=== PATIENT | male | born 2000 | race Caucasian/White ===

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

== ENCOUNTER 2024-03-12 19:54 | Emergency (ER) | payer OTHER ==
[2024-03-12 20:52] VITALS: BP 163/98; PULSE 66; RESP 20; TEMP 97.9
--- NOTE | 2024-03-12 21:10 | ED ---
Nausea/Vomiting/Diarrhea HPI - General Source: patient, RN notes reviewed <Haritha Leo - Last Filed: 03/12/24 21:08> <Taz Munoz - Last Filed: 03/13/24 16:56> - General Chief complaint: Nausea/Vomiting/Diarrhea Stated complaint: Vomiting Time Seen by Provider: 03/12/24 21:00 - History of Present Illness Initial comments: Quick [id number] male presenting with vomiting x 1 day. States he has been having vomiting, nasal congestion, and bodyaches for the past day. 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 He denies abdominal pain or any other concerns (Haritha Leo) 23-year-old male presenting with chief complaint of nausea and vomiting. Symptoms ongoing for the last day. He states that starting around this afternoon his symptoms seem to have started improving. He also admits to nasal congestion and bodyaches. A physician liaison and his employer is requiring him to have a COVID and flu test prior to returning to work. He denies any abdominal pain, chest pain, difficulty breathing, fevers, difficulty swallowing, ear pain. (Taz Munoz) - Related Data Previous Rx's Medication Instructions Recorded Amoxicillin/Potassium Clav 1 each PO Q12HR #20 tab 06/28/19 [Augmentin 875-125 Tablet] Ondansetron Odt [Zofran Odt] 4 mg PO Q8HR PRN #20 tab 03/12/24 Allergies Allergy/AdvReac Type Severity Reaction Status Date / Time No Known Allergies Allergy Verified 03/12/24 20:27 Review of Systems ROS Other: All systems not noted in ROS Statement are negative. <Haritha Leo - Last Filed: 03/12/24 21:08> ROS Other: All systems not noted in ROS Statement are negative. <Taz Munoz - Last Filed: 03/13/24 16:56> ROS Statement: Those systems with pertinent positive or pertinent negative responses have been documented in the HPI. Past Medical History Past Medical History: GERD/Reflux History of Any Multi-Drug Resistant Organisms: None Reported Past Surgical History: No Surgical Hx Reported Past Psychological History: Anxiety, Depression Smoking Status: Never smoker Past Alcohol Use History: None Reported Past Drug Use History: Marijuana <Haritha Leo - Last Filed: 03/12/24 21:08> General Exam <Haritha Leo - Last Filed: 03/12/24 21:08> Limitations: no limitations General appearance: alert, in no apparent distress Head exam: Present: atraumatic, normocephalic Eye exam: Present: normal appearance, EOMI Neck exam: Present: normal inspection. Absent: meningismus Respiratory exam: Present: normal lung sounds bilaterally. Absent: respiratory distress, wheezes, rales, rhonchi, stridor Cardiovascular Exam: Present: regular rate, normal rhythm, normal heart sounds. Absent: systolic murmur, diastolic murmur, rubs, gallop, clicks Neurological exam: Present: alert, oriented X3 Psychiatric exam: Present: normal affect, normal mood Skin exam: Present: warm, dry <Taz Munoz - Last Filed: 03/13/24 16:56> - General Exam Comments Initial Comments: Visual Physical Exam Vital signs reviewed General: Well-appearing, nontoxic, no acute distress. Head: Normocephalic, atraumatic Eyes: PERRLA, EOMI ENT: Airway patent Chest: Nonlabored breathing Skin: No visual rash, normal skin tone Neuro: Alert and oriented 3 Musculoskeletal: No gross abnormalities (Haritha Leo) Course Vital Signs 03/12/24 20:23 Temperature 97.9 F Pulse Rate 66 Respiratory 20 Rate Blood Pressure 163/98 O2 Sat by Pulse 100 Oximetry Medical Decision Making <Haritha Leo - Last Filed: 03/12/24 21:08> <Taz Munoz - Last Filed: 03/13/24 16:56> - Medical Decision Making I completed the quick note portion of this chart signed Haritha Leo PA-C (Haritha Leo) Was pt. sent in by a medical professional or institution (Dr. PA, FOOT DOCTOR, urgent care, hospital, or [facility]...) When possible be specific @ -No Did you speak to anyone other than the patient for history (EMS, parent, family, police, friend...)? What history was obtained from this source @ -No Did you review nursing and triage notes (agree or disagree)? Why? @ -I reviewed and agree with nursing and triage notes Were old charts reviewed (outside hosp., previous admission, EMS record, old EKG, old radiological studies, urgent care reports/EKG's, [facility] records)? Report findings @ -No old charts were reviewed Differential Diagnosis (chest pain, altered mental status, abdominal pain women, abdominal pain men, vaginal bleeding, weakness, fever, dyspnea, syncope, headache, dizziness, GI bleed, back pain, seizure, CVA, palpatations, mental health, musculoskeletal)? @ -Differential includes influenza, RSV, COVID, other viral syndrome, appendicitis, cholecystitis, pancreatitis, this is not an all-inclusive list EKG interpreted by me (3pts min.). @ -As above X-rays interpreted by me (1pt min.). @ -None done CT interpreted by me (1pt min.). @ -None done U/S interpreted by me (1pt. min.). @ -None done What testing was considered but not performed or refused? (CT, X-rays, U/S, labs)? Why? @ -None What meds were considered but not given or refused? Why? @ -None Did you discuss the management of the patient with other professionals (professionals i.e. , PA, FOOT DOCTOR, lab, RT, psych nurse, high school social science teacher, traveling passenger agent, teacher, seal delivery vehicle officer, immigration case manager)? Give summary @ -No Was smoking cessation discussed for >3mins.? @ -No Was critical care preformed (if so, how long)? @ -No Were there social determinants of health that impacted care today? How? (Homelessness, low income, unemployed, alcoholism, drug addiction, transportation, low edu. Level, literacy, decrease access to med. care, [facility], rehab)? @ -No Was there de-escalation of care discussed even if they declined (Discuss DNR or withdrawal of care, Hospice)? DNR status @ -No What co-morbidities impacted this encounter? (DM, HTN, Smoking, COPD, CAD, Cancer, CVA, ARF, Chemo, Hep., AIDS, mental health diagnosis, sleep apnea, morbid obesity)? @ -None Was patient admitted / discharged? Hospital course, mention meds given and route, prescriptions, significant lab abnormalities, going to OR and other pertinent info. @ -23-year-old male with chief complaint of nausea vomiting congestion and bodyaches. Is ongoing for about a day, symptoms have started improving today. His employer is requiring him to be tested for COVID and flu. Patient is negative for influenza, RSV, COVID. Provided with work note and discharged sarika e. Follow-up with PCP. Report back to ER with any new or worsening symptoms. Discussed return parameters and answered all questions. Patient conveyed verbal understanding and agreed to the plan. I discussed this case in detail with my attending Dr. De Leon Undiagnosed new problem with uncertain prognosis? @ -No Drug Therapy requiring intensive monitoring for toxicity (Heparin, Nitro, Insulin, Cardizem)? @ -No Were any procedures done? @ -No Diagnosis/symptom? @ -Nausea and vomiting, viral syndrome Acute, or Chronic, or Acute on Chronic? @ -Acute Uncomplicated (without systemic symptoms) or Complicated (systemic symptoms)? @ -Uncomplicated Side effects of treatment? @ -No Exacerbation, Progression, or Severe Exacerbation? @ -No Poses a threat to life or bodily function? How? (Chest pain, [place], [place], pneumonia, PE, COPD, DKA, ARF, appy, cholecystitis, CVA, Diverticulitis, Homicidal, Suicidal, threat to staff... and all critical care pts) @ -Low likelihood (Taz Munoz) - Lab Data Lab Results 03/12/24 Range/Units 20:30 Influenza Type A (PCR) Not Detected (Not Detectd) Influenza Type B (PCR) Not Detected (Not Detectd) RSV (PCR) Not Detected (Not Detectd) SARS-CoV-2 (PCR) Not Detected (Not Detectd) Disposition <Haritha Leo - Last Filed: 03/12/24 21:08> Is patient prescribed a controlled substance at d/c from ED?: No Time of Disposition: 22:28 <Taz Munoz - Last Filed: 03/13/24 16:56> Clinical Impression: Nausea & vomiting, Viral syndrome Disposition: HOME SELF-CARE Condition: Good Instructions (If sedation given, give patient instructions): Acute Nausea and Vomiting (ED), Viral Syndrome (ED) Additional Instructions: Follow-up with your PCP. Report back to ER with any new or worsening symptoms. Prescriptions: Ondansetron Odt [Zofran Odt] 4 mg PO Q8HR PRN #20 tab PRN Reason: Nausea Referrals: None,Stated [Primary Care Provider] - 1-2 days Faida Coulter MD [STAFF PHYSICIAN] - 1-2 days
== END 2024-03-12 22:51 | disposition home or self-care (01) ==
LOC: EC 19:54
DX: B34.9 Viral infection, unspecified (principal)
CPT/HCPCS: 87636; 99283; 99284